=== PATIENT | male | born 1960 | race African-American/Black ===

== ENCOUNTER 2022-03-10 06:50 | Emergency (ER) | payer MEDICARE ==
[2022-03-10] VITALS (24 sets, daily range): BP systolic 00–222; BP diastolic 00–127
[~2022-03-10] VITALS: Ht 172.7 cm; Wt 84.0 kg
[2022-03-10 07:43] LABS: HEMATOCRIT 41.9 % (39.0-50.0); HEMOGLOBIN 12.6 g/dl (14.0-18.0); IMMATURE GRANULOCYTES 1.5 % (0.0-5.0); MEAN CELL VOLUME 83.3 fL CALC (80.0-100.0); MEAN CORPUSCULAR HGB CONC 30.1 g/dL CAL (32.0-36.0); NEUT# 8.76 thou/uL (1.82-7.42); RED BLOOD COUNT 5.03 mill/uL (4.70-6.10); RED CELL DISTRI WIDTH 17.6 % (11.5-15.5)
[2022-03-10 07:44] LABS: ALBUMIN 4.5 g/dL (3.2-5.0); BILIRUBIN, TOTAL 2.6 mg/dL (0.0-1.4); POTASSIUM 4.9 mmol/l (3.5-5.1); TOTAL PROTEIN 8.5 g/dL (6.3-8.2)
[2022-03-10 07:55] LABS: CREATININE 8.5 mg/dL (0.7-1.3)
[2022-03-10 08:31] LABS: HEMATOCRIT 43.9 % (39.0-50.0); HEMOGLOBIN 12.9 g/dl (14.0-18.0); MEAN CELL VOLUME 84.7 fL CALC (80.0-100.0); MEAN CORPUSCULAR HGB 24.9 pG CALC (26.0-32.0); MEAN CORPUSCULAR HGB CONC 29.4 g/dL CAL (32.0-36.0); PLATELET COUNT 214 thou/uL (130-400); RED BLOOD COUNT 5.18 mill/uL (4.70-6.10); RED CELL DISTRI WIDTH 17.9 % (11.5-15.5)
[2022-03-10 08:45] LABS: ALBUMIN 3.7 g/dL (3.2-5.0); BILIRUBIN, TOTAL 2.1 mg/dL (0.0-1.4); TOTAL PROTEIN 7.1 g/dL (6.3-8.2)
[2022-03-10 08:49] LABS: IMMATURE GRANULOCYTES 6.7 % (0.0-5.0)
[2022-03-10 08:50] LABS: BAND 9 % (0-8); MANUAL DIFFERENTIAL YES; NUCLEATED RED BLOOD CELL 4 /100WBC (0-1)
[2022-03-10 09:02] LABS: CREATININE 7.8 mg/dL (0.7-1.3); POTASSIUM 3.6 mmol/l (3.5-5.1)
[2022-03-10] MEDS ORDERED: CARVEDILOL6.25 MG PO (12:38)
[2022-03-10] MEDS ORDERED: ELIQUIS5 MG PO (12:39)
[2022-03-10] MEDS ORDERED: PRESERVISION PO (12:40)
[2022-03-10] MEDS ORDERED: OMEGA 31000 MG PO (12:40)
[2022-03-10] MEDS ORDERED: GLIMEPIRIDE4 MG PO (12:40)
[2022-03-10] MEDS ORDERED: FERRAPLUS 90 PO (12:41)
[2022-03-10] MEDS ORDERED: MULTIVITAMI9 PO (12:41)
== END 2022-03-10 11:18 | disposition expired ==
LOC: ED 06:50
PROVIDERS: Family Medicine
PROC: 5A12012 Performance of Cardiac Output, Single, Manual (ICD-10-PCS; principal; 2022-03-10)
PROC: 0BH17EZ Insertion of Endotracheal Airway into Trachea, Via Natural or Artificial Opening (ICD-10-PCS; 2022-03-10)
PROC: 5A1935Z Respiratory Ventilation, Less than 24 Consecutive Hours (ICD-10-PCS; 2022-03-10)
PROC: 02HV33Z Insertion of Infusion Device into Superior Vena Cava, Percutaneous Approach (ICD-10-PCS; 2022-03-10)
PROC: 0T9B70Z Drainage of Bladder with Drainage Device, Via Natural or Artificial Opening (ICD-10-PCS; 2022-03-10)
DX: I48.91 Unspecified atrial fibrillation (principal); I46.2 Cardiac arrest due to underlying cardiac condition; I12.0 Hypertensive chronic kidney disease with stage 5 chronic kidney disease or end stage renal disease; E11.22 Type 2 diabetes mellitus with diabetic chronic kidney disease; N18.6 End stage renal disease; Z99.2 Dependence on renal dialysis; Z79.84 Long term (current) use of oral hypoglycemic drugs; Z20.822 Contact with and (suspected) exposure to COVID-19